=== PATIENT | female | born 1965 | race Two or more races ===

== ENCOUNTER 2019-02-10 16:10 | Emergency (ER) | payer SELFPAY ==
[~2019-02-10] VITALS: Ht 152.4 cm; Wt 103.4 kg
--- NOTE | 2019-02-10 17:14 | NUR ---
PT BIB DAUGHTER C/O RIGHT SIDE BODY PAIN X 3 DAYS WITH ON AND OFF HEADACHE -SLURRED SPEECH -WEAKNESS. PT AAOX4, AMBULATORY, BREATHING EVEN AND UNLABORED ON ROOM AIR W/ NAD NOTED. PT CONNECTED TO THE MONITOR AND POX
[2019-02-10] MEDS ORDERED: METOCLOPRAMIDE HCL 10 MG/2 ML VIAL IV ONE (17:30)
[2019-02-10] MEDS ORDERED: diphenhydrAMINE HCL 50 MG/ML VIAL IV ONE (17:30)
[2019-02-10] MEDS ORDERED: KETOROLAC TROMETHAMINE INJ 60 MG/2 ML VIAL IM ONE (17:30)
[2019-02-10] MEDS ORDERED: IV NS 0.9% 1,000 ML BAG IV ONE (17:30)
[2019-02-10] MEDS ORDERED: METOCLOPRAMIDE HCL 10 MG/2 ML VIAL ONE (17:38)
[2019-02-10] MEDS ORDERED: KETOROLAC TROMETHAMINE INJ 30 MG/ML VIAL ONE (17:38)
[2019-02-10] MEDS ORDERED: diphenhydrAMINE HCL 50 MG/ML VIAL ONE (17:38)
[2019-02-10 20:09] VITALS: BP 135/75
--- NOTE | 2019-02-10 20:09 | NUR ---
Patient discharged to home in stable condition. Written and verbal after care instructions given. Patient verbalizes understanding of instruction.IV removed. Catheter intact and site benign. Pressure and 4x4 applied to site. No bleeding noted.
== END 2019-02-10 20:10 | disposition home or self-care (01) ==
LOC: ER 16:16
DX: G44.209 Tension-type headache, unspecified, not intractable (principal); M25.511 Pain in right shoulder
CPT/HCPCS: 70450; 73030; 96372; 96374; 96375; 99284; A4216; J1200; J1885; J2765; J7030

== ENCOUNTER 2022-03-05 17:07 | Emergency (ER) | payer MEDICAID, OTHER ==
[~2022-03-05] VITALS: Ht 162.6 cm; Wt 87.1 kg
--- NOTE | 2022-03-05 17:15 | NUR ---
RECEIVED PT 57 YRS FEMALE CAME BY MARIELLE FROM STORE S/P FELL DOWN TODAY AND C/O PAIN ON RT SHOULDER AWAKE AND ALERT DIDNOT HIT HERE HEAD
--- NOTE | 2022-03-05 17:40 | NUR ---
SEEN BY DR. TRISTAN AT BED SIDE
[2022-03-05] MEDS ORDERED: KETOROLAC TROMETHAMINE INJ 30 MG/ML VIAL ONE (17:49)
[2022-03-05] MEDS ORDERED: KETOROLAC TROMETHAMINE INJ 60 MG/2 ML VIAL IM ONE (18:00)
--- NOTE | 2022-03-05 18:15 | NUR ---
[facility]
--- NOTE | 2022-03-05 18:25 | NUR ---
X RAY DONE AT BED SIDE
[2022-03-05] MEDS ORDERED: MORPHINE SULFATE INJ 4 MG/ML DISP.SYRIN ONE (18:32)
--- NOTE | 2022-03-05 18:50 | NUR ---
AT BED SIDE FOR RT SHOULDER REDUCTION AT BED SIDE MORPHIN 4 MG IM GIVEN
--- NOTE | 2022-03-05 18:55 | NUR ---
RT SHOULDER REDUCTION DONE AND RT SHOULDER IMMOBILIZER INPACE DONE WATING FOR XRAY TO FALLOW
[2022-03-05] MEDS ORDERED: MORPHINE SULFATE INJ 2 MG/ML DISP.SYRIN IM ONE (19:00)
--- NOTE | 2022-03-05 19:16 | NUR ---
A R COLLECTIONS REP AT BEDSIDE
--- NOTE | 2022-03-05 19:23 | NUR ---
REPORT RECEIVED FROM KHALIF MARSHALL. MANUAL REDUCTION DONE BY DR TRISTAN. PATIENT IS SLEEPING BUT AROUSABLE. PATIENT IS AAOX4. ABLE TO MAKE NEEDS KNOWN. PLACED COMFORTABLY IN BED. VITALS CHECKED.
--- NOTE | 2022-03-05 19:27 | NUR ---
HAND OFF CLEAR RN
--- NOTE | 2022-03-05 19:56 | NUR ---
Alirio vu in [facility] - 03/05/22 at 1958 by AUTUMN LES (RIDGE) [phone] OR [phone]
--- NOTE | 2022-03-05 19:58 | NUR ---
LES (BRYON) [phone] OR [phone]
--- NOTE | 2022-03-05 20:14 | NUR ---
Patient discharged to home in stable condition. Written and verbal after care instructions given. Patient verbalizes understanding of instruction. Pt ambulatory with a steady gait
[2022-03-05 20:15] VITALS: BP 118/73
== END 2022-03-05 20:15 | disposition home or self-care (01) ==
LOC: ER 17:21
DX: S43.014A Anterior dislocation of right humerus, initial encounter (principal); W01.0XXA Fall on same level from slipping, tripping and stumbling without subsequent striking against object, initial encounter; Y93.89 Activity, other specified; Y92.89 Other specified places as the place of occurrence of the external cause; Y99.8 Other external cause status
CPT/HCPCS: 99284; 23650; 73030 ×2; 96372 ×2; J2270; J1885